=== PATIENT | female | born 1960 | race Caucasian/White ===

== ENCOUNTER 2017-01-19 18:10 | Emergency (ER) | payer BC ==
[~2017-01-19] VITALS: Ht 162.6 cm; Wt 80.0 kg
--- NOTE | 2017-01-19 18:49 | PD ---
HPI Chief Complaint: Headache Time Seen by Provider: 18:48 Travel History International Travel<30 days: No Contact w/Intl Traveler<30days: No Traveled to known affect area: No History of Present Illness HPI 56-year-old female presents to the emergency department via EMS with complaint of right facial swelling and concern of fractured nose after losing her footing and falling from approximately a 3 foot [place] and hitting her right face on a rock. Denies loss of consciousness. Denies neck pain or back pain. Denies anticoagulant therapy. Denies chest pain, shortness of breath, abdominal pain, vomiting. Denies lightheadedness, dizziness, headache. Denies focal deficits or weakness. Denies confusion, disorientation, change in mentation, change in vision. Reports epistaxis with very minimal drainage at this time. Reports an abrasion to her left calderon. Abrasion noted to her right nasal bridge. Denies any pain at this time. She is just concerned because she has history of 3 brain aneurysms with 3 or 4 coils and a stent. Has not been given any medications or taken any medications to alleviate her symptoms. Ice pack provided in the ER. Symptoms are moderate in severity. Unknown tetanus status ; thinks she may have had one 3 years ago. No known allergies. Has no other medical complaints. No other modifying factors or associated signs and symptoms. [facility] Social History Tobacco Use: No Review of Systems Except as stated in HPI: all other systems reviewed are Neg Physical Exam Narrative GENERAL: Well-nourished, well-developed female patient, in no acute distress SKIN: Warm and dry. HEAD: Atraumatic. Normocephalic. Right nasal bridge abrasion noted. Swelling of the nose noted. Facial droop noted. Tongue midline. EYES: Pupils equal and round at 3 mm with brisk reaction. No scleral icterus. No injection or drainage. Bilateral raccoon eyes; right worse than left. Right eye and forehead edema. ENT: Mucosa pink and moist. No erythema or exudates. No uvular edema. No uvular , palatal, or tonsillar deviation. Airway patent. Nares with minimal nasal blood; without purulent drainage or septal hematoma. No rhinorrhea. Nares patent bilaterally. EARS: Bilateral pinnae and external canals appear within normal limits. Bilateral tympanic membranes without erythema, dullness, hemotympanum or perforation. No otorrhea. No wilson signs. NECK: Moving freely. Trachea midline. No lymphadenopathy. No midline point tenderness on palpation of the cervical spine. Active rotation of the neck greater than 45 left and right. No obvious deformities. CHEST: Nontender throughout without deformity or crepitance. No retractions or use of accessory muscles. CARDIOVASCULAR: Regular rate and rhythm. No murmur appreciated. RESPIRATORY: No accessory muscle use. Clear to auscultation. Breath sounds equal bilaterally. GASTROINTESTINAL: Obese. MUSCULOSKELETAL: No obvious deformities. No clubbing. No cyanosis. No edema. BACK: No midline Point tenderness on palpation of the lumbar or thoracic spine. No obvious deformities. Patient sitting up in bed at 90. Blood which were in the room with a normal gait. NEUROLOGICAL: Awake and alert. Oriented 4. No obvious cranial nerve deficits. Motor grossly within normal limits. Normal speech. No midline drift. No ataxia. Moves all extremities. 5/5 strength to all extremities. Sensory intact. PSYCHIATRIC: Appropriate mood and affect; insight and judgment normal. Data Data Orders Orders Ct Brain W/O Iv Contrast(Rout) (01/19/17 ) Ct Facial Bones W/O Iv Cont (01/19/17 ) [facility] [place] Medical Decision Making Medical Screen Exam Complete: Yes Emergency Medical Condition: Yes Medical Record Reviewed: Yes Differential Diagnosis Orbital fracture, facial contusion, fall, hematoma, facial fracture, TBI, closed head injury Narrative Course 56-year-old female with facial injury after mechanical fall. Denies loss of consciousness. CT head and CT facial bones ordered. Denies neck pain. [place] C-Spine Rule suggests the C-Spine can be cleared clinically of fracture , and imaging is not required. There is no midline point tenderness on palpation of the cervical spine. The patient is able to actively rotate the neck 45 left and right. The patient is sitting up in bed at 90. The patient is ambulatory. The patient pain medication and she declined at this time. Ice pack provided. 1900: Report given 2 Lortab in her, [employer] at change of shift. See her note for final patient disposition. Elle Duncan Jan 19, 2017 18:49
[2017-01-19 18:51] VITALS: BP 119/78; PULSE 83; RESP 20; TEMP 98; O2SAT 100
[2017-01-19] MEDS ORDERED: ADDE15TA PO (19:03)
[2017-01-19] MEDS ORDERED: CYMB30CA PO (19:03)
--- NOTE | 2017-01-19 19:54 | RADRPT ---
EXAM DATE/TIME: 01/19/2017 19:37 [facility] COMPARISON: No previous studies available for comparison. INDICATIONS : Head pain due to fall. RADIATION DOSE: 45.79 CTDIvol (mGy) MEDICAL HISTORY : Aneurysm, intracranial. SURGICAL HISTORY : None. ENCOUNTER: Initial ACUITY: 1 day PAIN SCALE: 9/10 LOCATION: Right cranial TECHNIQUE: Multiple contiguous axial images were obtained of the head. Using automated exposure control and adjustment of the mA and/or kV according to patient size, radiation dose was kept as low as reasonably achievable to obtain optimal diagnostic quality images. DICOM format image data is av ailable electronically for review and comparison. FINDINGS: CEREBRUM: The ventricles are normal for age. No evidence of midline shift, mass lesion, hemorrha ge or acute infarction. No extra-axial fluid collections are seen. There is an aneurysm coil in the region of the bifurcation of the right internal carotid artery. POSTERIOR FOSSA: The cerebellum and brainstem are intact. The 4th ventricle is midline. The cer ebellopontine angle is unremarkable. EXTRACRANIAL: The visualized portion of the orbits is intact. SKULL: The calvaria is intact. No evidence of skull fracture. CONCLUSION: No acute intracranial abnormality. Aneurysm coil in place Beck Metz MD on January 19, 2017 at 19:49 Board Certified Radiologist. This report was verified electronically.
--- NOTE | 2017-01-19 20:12 | RADRPT ---
EXAM DATE/TIME: 01/19/2017 19:40 [facility] COMPARISON: No previous studies available for comparison. INDICATIONS : Right sided facial pain due to fall. RADIATION DOSE: 36.57 CTDIvol (mGy) MEDICAL HISTORY : Aneurysm, intracranial. SURGICAL HISTORY : Aneurysm, cranial sx. ENCOUNTER: Initial ACUITY: 1 day PAIN SCORE: 7/10 LOCATION: Right facial and nose region. TECHNIQUE: Volumetric scanning of the facial bones was performed. Using automated exposure control and adjustme nt of the mA and/or kV according to patient size, radiation dose was kept as low as reasonably achiev able to obtain optimal diagnostic quality images. DICOM format image data is available electronicall y for review and comparison. FINDINGS: ORBITS: The orbital and infraorbital osseous structures are intact. The retroconal structures have a normal configuration. No radiopaque foreign bodies are seen. NASAL BONE: Fractures bilateral nasal ala. ZYGOMATIC ARCHES: Symmetric without evidence of fracture. SINUSES: The maxillary, ethmoid and frontal sinuses are intact. No air-fluid levels seen. NASAL CAVITY: The nasal septum is intact and midline. The lacrimal ducts are intact. SOFT TISSUES: Superficial soft tissue swelling in the right frontal region and supraorbital region INTRACRANIAL: No intracranial air seen. CRIBIFORM PLATE: Grossly intact. CONCLUSION: Soft tissue swelling right frontal region and superior orbital region. This is superficial. Fractures of the nasal ala otherwise intact bony structures Beck Metz MD on January 19, 2017 at 20:08 Board Certified Radiologist. This report was verified electronically.
[2017-01-19] MEDS ORDERED: ACETAMINOPHEN/HYDROcodone 325 MG/7.5 MG TAB PO ONE (20:45)
[2017-01-19] MEDS ORDERED: HYDR-3533 PO (20:48)
[2017-01-19] MEDS ORDERED: AUGM875T3 PO (20:48)
--- NOTE | 2017-01-19 20:48 | PD ---
Physical Exam Date Seen by Provider: Jan 19, 2017 Time Seen by Provider: 20:45 Narrative For full history and physical examination please see previous provider's note. I assumed care of this patient at the change of shift. Data Data Last Documented VS Vital Signs Date Time Temp Pulse Resp B/P (MAP) Pulse Ox O2 Delivery O2 Flow Rate FiO2 01/19/17 18:51 98.0 83 20 119/78 (92) [address] Brain W/O Iv Contrast(Rout) (01/19/17 ) Ct Facial Bones W/O Iv Cont (01/19/17 ) Acetamin-Hydrocod 325-7.5 Mg ([place] 7.5 (01/19/17 20:45) Ed Discharge Order (01/19/17 20:44) [facility] Medical Record Reviewed: Yes Supervised Visit with DAVID: No Interpretation(s) Last Impressions Maxillofacial CT 01/19/17 0000 Signed Impressions: Service Date/Time: Tuesday, January 19, 2017 19:40 - CONCLUSION: Soft tissue swelling right frontal region and superior orbital region. This is superficial. Fractures of the nasal ala otherwise intact bony structures Beck Metz MD Head CT 01/19/17 0000 Signed Impressions: Service Date/Time: Thursday, January 19, 2017 19:37 - CONCLUSION: No acute intracranial abnormality. Aneurysm coil in place Beck Metz MD Narrative Course Patient is a 56-year-old female that sustained a contusion to her head as a result of [place] fall [place]. Again please see previous provider's note. I assumed care of this patient and at that time CT scan of the brain and facial bones were pending. Patient remains neurologically intact with no focal deficits. Family is at bedside. CT of the brain which was read by the radiologist shows no acute intracranial abnormality. It does notate aneurysm coil. CT of the facial bones which is also read by the radiologist shows soft tissue swelling in the right frontal region and superior orbital region, this is superficial. Discussed results of imaging with my attending physician. Patient has fractures of the knees all otherwise intact bony structures. We placed on Augmentin empirically. She was encouraged not to blow her nose or hold back seizes. She was given narcotic pain medication for home. They were educated on need to return to emergency department immediately for any new or worsening symptoms or neurological changes such as vomiting, headache, slurred speech, weakness. They were advised to follow-up with ENT in 1 week as well as her primary doctor. Patient and family verbalized understanding of instructions. Patient stable for discharge. Diagnosis Primary Impression: Head injury, acute, without loss of consciousness Qualified Codes: S09.90XA - Unspecified injury of head, initial encounter Additional Impressions: Contusion of head Qualified Codes: S00.93XA - Contusion of unspecified part of head, initial encounter Nasal bone fracture Qualified Codes: S02.2XXA - Fracture of nasal bones, initial encounter for closed fracture Referrals: Ear / Nose / Throat Specialist 1 week Primary Care Physician 1 week Patient Instructions: Concussion (ED), Facial Contusion (ED), General Instructions, Head Injury (ED) Additional Instruction: Follow-up with your primary doctor Follow-up with ear, nose, throat specialist in 1 week Do not blow your nose or hold back a sneeze Apply cool compresses to affected area to help with swelling Complete full course of antibiotics as prescribed Do not drive or operate machinery while taking narcotic pain medication Return to emergency department immediately for any new or worsening symptoms Med/Other Pt SpecificInfo: Prescription(s) given Scripts Hydrocodone-Acetaminophen (Lortab) 5-325 Mg Tab 1 TAB PO Q4H Y for PAIN, #12 TAB 0 Refills Prov: Adina Drew 01/19/17 Amoxicillin-Clavulanate (Augmentin) 875-125 Mg Tab 1 TAB PO BID for Infection for 10 Days, #20 TAB 0 Refills Prov: Adina Drew 01/19/17 Disposition: 01 DISCHARGE HOME Condition: Stable Adina Drew Jan 19, 2017 20:48
== END 2017-01-19 21:06 | disposition home or self-care (01) ==
LOC: NEPK 18:10
DX: S09.90XA Unspecified injury of head, initial encounter (principal); S02.2XXA Fracture of nasal bones, initial encounter for closed fracture; S00.93XA Contusion of unspecified part of head, initial encounter; W13.8XXA Fall from, out of or through other building or structure, initial encounter
CPT/HCPCS: 70450; 70486; 99285